=== PATIENT | female | born 1980 | race Caucasian/White ===

== ENCOUNTER 2025-01-19 22:55 | Emergency (ER) | payer MEDICAID ==
[~2025-01-19] VITALS: Ht 154.9 cm; Wt 90.1 kg
[2025-01-19 23:16] VITALS: O2SAT 99
[2025-01-19 23:56] LABS: BASOPHILS % 0.9 % (0.0-2.0); HEMATOCRIT. 35.7 % (36.0-48.0); LYMPHOCYTES % 37.9 % (20.0-50.0); MEAN CORPUSCULAR HEMOGLOBIN 29.3 pg (28.0-32.0); MEAN CORPUSCULAR HGB CONC 33.5 g/dL (31.0-37.0); MEAN CORPUSCULAR VOLUME 87.5 fL (81.0-99.0); MEAN PLATELET VOLUME 8.1 fl (7.4-10.4); MONOCYTES % 4.5 % (2.0-8.0); NEUTROPHILS % 54.7 % (40.0-76.0); PLATELET 261 x1000/uL (130-400); RED BLOOD CELL COUNT 4.08 mill/uL (4.2-5.4); RED CELL DISTRIBUTION WIDTH 13.8 % (11.6-14.6); WHITE BLOOD COUNT 8.2 x1000/uL (4.5-11.0)
[2025-01-20 00:18] LABS: CHLORIDE 107 mEq/L (98-107); POTASSIUM 3.8 mEq/L (3.5-5.1); SODIUM 140 mEq/L (136-145)
[2025-01-20 00:19] LABS: CARBON DIOXIDE 25 mEq/L (21-32)
[2025-01-20 00:24] LABS: CREATININE 0.8 mg/dL (0.6-1.0); GLUCOSE 104 mg/dL (70-105)
[2025-01-20 00:25] LABS: UREA NITROGEN BLOOD 9 mg/dL (9-23)
[2025-01-20 00:26] LABS: ALANINE AMINOTRANSFERASE 15 IU/L (10-49); ASPARTATE AMINOTRANSFERASE 13 IU/L (<34); BILIRUBIN DIRECT < 0.1 mg/dL (<=3.0)
[2025-01-20 00:27] LABS: BILIRUBIN TOTAL 0.4 mg/dL (0.1-1.0); PROTEIN TOTAL 6.8 g/dL (6.0-8.3)
[2025-01-20] MEDS: IBUPROFEN 600MG TABLET PO ONE (00:43)
[2025-01-20 01:02] LABS: CLARITY URINE CLEAR (CLEAR); COLOR URINE YELLOW (YELLOW); GLUCOSE URINE NEGATIVE (NEGATIVE); KETONES URINE NEGATIVE (NEGATIVE); LEUKOCYTE ESTERASE URINE NEGATIVE (NEGATIVE); NITRITE URINE NEGATIVE (NEGATIVE); OCCULT BLOOD URINE NEGATIVE (NEGATIVE); PROTEIN URINE NEGATIVE (NEGATIVE); SPECIFIC GRAVITY URINE 1.006 (1.005-1.030); UROBILINOGEN URINE 0.2 E.U./dL (0.2-1.0)
[2025-01-20] MEDS ORDERED: DICYCLOMINE 10 MG/5 ML ORAL SYR PO STA (01:22)
[2025-01-20] MEDS ORDERED: IBUP-2029 MT (02:23)
[2025-01-20] MEDS: ONDANSETRON 4MG ODT PO STA (02:43)
[2025-01-20] MEDS: DICYCLOMINE HCL 10MG CAPSULE PO NR (02:43)
[2025-01-20] MEDS: MAGNESIUM/ALUMINUM HYDROXIDE/SIMETHICONE 30ML UDC PO STA (02:43)
[2025-01-20 02:50] VITALS: BP 123/59; PULSE 60; RESP 13; TEMP 37; O2SAT 96
== END 2025-01-20 02:50 | disposition home or self-care (01) ==
LOC: ER 22:55
DX: R10.2 Pelvic and perineal pain (principal); R51.9 Headache, unspecified
CPT/HCPCS: 99284; 80076; 80048; 83690; 85025; 36415; 76700; 81003; Q0162